=== PATIENT | female | born 1995 | race Caucasian/White ===

== ENCOUNTER 2016-10-10 23:18 | Emergency (ER) | payer BC ==
--- NOTE | 2016-10-10 23:27 | EDM.PDOC ---
ED HPI GENERAL MEDICAL PROBLEM - General Chief Complaint: Abdominal Pain Stated Complaint: PT HAS STOMACH PAINS Time Seen by Provider: 10/10/16 23:27 Source of Information: Reports: Patient - History of Present Illness INITIAL COMMENTS - FREE TEXT/NARRATIVE: HISTORY AND PHYSICAL: History of present illness: []20-year-old at 5-1/7 weeks by very uncertain dates, she can pinpoint her LMP to the month of August she is uncertain if it is beginning [place] and she thinks it may be the middle of August If September 04 were in fact her LMP should be 5-1/7 weeks EDC would be June 11, 2017 She denies any low back pain vaginal bleeding spotting fluid leak with leakage she has had some scant white discharge over the last couple of days, she found out she was 2 days prior after [facility] here in [facility] on a urine hCG Tonight she complains of 7 out of 10 right upper quadrant right lower quadrant and left lower quadrant pain for 20 minutes this began 20-40 minutes after eating pizza Previous history of biliary colic 2 years prior Review of systems: As per history of present illness and below otherwise all systems reviewed and negative. Past medical history: As per history of present illness and as reviewed below otherwise noncontributory. Surgical history: As per history of present illness and as reviewed below otherwise noncontributory. Social history: No reported history of drug or alcohol abuse. Family history: As per history of present illness and as reviewed below otherwise noncontributory. Physical exam: HEENT: Atraumatic, normocephalic, pupils reactive, negative for conjunctival pallor or scleral icterus, mucous membranes moist, throat clear, neck supple, nontender, trachea midline. Lungs: Clear to auscultation, breath sounds equal bilaterally, chest nontender. Heart: S1S2, regular, negative for clicks, rubs, or JVD. Abdomen: Soft, nondistended, nontender. Negative for masses or hepatosplenomegaly. Negative for costovertebral tenderness. Pelvis: Stable nontender. Genitourinary: Deferred. Rectal: Deferred. Extremities: Atraumatic, negative for cords or calf pain. Neurovascular unremarkable. Neuro: Awake, alert, oriented. Cranial nerves II through XII unremarkable. Cerebellum unremarkable. Motor and sensory unremarkable throughout. Exam nonfocal. Diagnostics: []CBC CMP UA urine culture hCG Therapeutics: []1 L normal saline bolus Zofran 8 mg IV Morphine 2 mg IV [place] Zofran Avoid greasy food Amoxicillin 500 by mouth twice a day #20 no refill Impression: []Abdominal pain resolved Likely biliary colic even history IUP ABO type A positive 20-year-old 5-1/7 weeks by uncertain dates 5-5/7 weeks by ultrasound EDC June 11, 2017 by uncertain dates Trace leukocyte esterase and blood in urine Definitive disposition and diagnosis as appropriate pending reevaluation and review of above. Left Abdomen Pain Score (Numeric/FACES): 7 - Related Data Allergies Allergy/AdvReac Type Severity Reaction Status Date / Time No Known Allergies Allergy Verified 03/10/14 12:07 Home Meds: Home Meds . [No Known Home Meds] 10/10/16 [History] ED ROS GENERAL - Review of Systems Review Of Systems: ROS reveals no pertinent complaints other than HPI. ED EXAM, GENERAL - Physical Exam Exam: See Below Course - Vital Signs Last Recorded V/S: Last Vital Signs Temp 36.2 C 10/10/16 23:22 Pulse 92 10/10/16 23:22 Resp 16 10/10/16 23:22 BP 143/97 H 10/10/16 23:22 Pulse Ox 98 10/10/16 23:22 - Orders/Labs/Meds Orders: Active Orders 24 hr Category Date Time Status Abdomen Ltd [US] Stat Exams 10/10/16 23:36 Taken OB Transvaginal [US] Stat Exams 10/11/16 23:36 Taken CULTURE URINE [RM] Stat Lab 10/11/16 00:00 Received Labs: Laboratory Tests 10/10/16 10/10/16 10/10/16 Range/Units 23:40 23:40 23:40 WBC 12.21 H (4.0-11.0) K/uL RBC 4.90 (4.30-5.90) M/uL Hgb 14.8 (12.0-16.0) g/dL Hct 42.6 (36.0-46.0) % MCV 86.9 (80.0-98.0) fL MCH 30.2 (27.0-32.0) pg MCHC 34.7 (31.0-37.0) g/dL RDW Std Deviation 41.5 (28.0-62.0) fl RDW Coeff of Jeanette 13 (11.0-15.0) % Plt Count 239 (150-400) K/uL MPV 11.60 (7.40-12.00) fL Neut % (Auto) 64.7 (48.0-80.0) % Lymph % (Auto) 25.6 (16.0-40.0) % [place] % (Auto) 8.6 (0.0-15.0) % Eos % (Auto) 1.0 (0.0-7.0) % Baso % (Auto) 0.1 (0.0-1.5) % Neut # (Auto) 7.9 H (1.4-5.7) K/uL Lymph # (Auto) 3.1 H (0.6-2.4) K/uL [place] # (Auto) 1.1 H (0.0-0.8) K/uL Eos # (Auto) 0.1 (0.0-0.7) K/uL Baso # (Auto) 0.0 (0.0-0.1) K/uL Nucleated RBC % 0.0 /100WBC Nucleated RBCs # 0 K/uL Sodium 139 (136-146) mmol/L Potassium 3.7 (3.5-5.1) mmol/L Chloride 106 (98-110) mmol/L Carbon Dioxide 26 (21-31) mmol/L BUN 9 (6.0-23.0) mg/dL Creatinine 0.8 (0.6-1.5) mg/dL Est Cr Clr Drug Dosing TNP Estimated GFR (MDRD) > 60.0 ml/min Glucose 98 (60-110) mg/dL Calcium 10.1 (8.8-10.8) mg/dL Total Bilirubin 0.6 (0.1-1.5) mg/dL AST 17 (5-40) IU/L ALT 13 (8-54) IU/L Alkaline Phosphatase 41 (40-150) Total Protein 7.7 (6.0-8.0) g/dL Albumin 4.6 (3.5-5.0) g/dL Globulin 3.1 (2.0-3.5) g/dL Albumin/Globulin Ratio 1.5 (1.3-2.8) Amylase 49 (10-90) U/L Lipase 13 (7-80) U/L HCG, Quant 88544.2 mIU/mL Urine Color Urine Appearance Urine pH (5.0-8.0) Ur Specific [place] (1.001-1.035) Urine Protein (NEGATIVE) mg/dL Urine Glucose (UA) (NEGATIVE) mg/dL Urine Ketones (NEGATIVE) mg/dL Urine Occult Blood (NEGATIVE) Urine Nitrite (NEGATIVE) Urine Bilirubin (NEGATIVE) Urine Ictotest Urine Urobilinogen (<2.0) EU/dL Ur Leukocyte Esterase (NEGATIVE) Urine RBC (0-2/HPF) Urine WBC (0-5/HPF) Ur Epithelial Cells (NONE-FEW) Urine Bacteria (NEGATIVE) Urine Mucus (NONE-MOD) Blood Type A POSITIVE 10/11/16 Range/Units 00:00 WBC (4.0-11.0) K/uL RBC (4.30-5.90) M/uL Hgb (12.0-16.0) g/dL Hct (36.0-46.0) % MCV (80.0-98.0) fL MCH (27.0-32.0) pg MCHC (31.0-37.0) g/dL RDW Std Deviation (28.0-62.0) fl RDW Coeff of Jeanette (11.0-15.0) % Plt Count (150-400) K/uL MPV (7.40-12.00) fL Neut % (Auto) (48.0-80.0) % Lymph % (Auto) (16.0-40.0) % [place] % (Auto) (0.0-15.0) % Eos % (Auto) (0.0-7.0) % Baso % (Auto) (0.0-1.5) % Neut # (Auto) (1.4-5.7) K/uL Lymph # (Auto) (0.6-2.4) K/uL [place] # (Auto) (0.0-0.8) K/uL Eos # (Auto) (0.0-0.7) K/uL Baso # (Auto) (0.0-0.1) K/uL Nucleated RBC % /100WBC Nucleated RBCs # K/uL Sodium (136-146) mmol/L Potassium (3.5-5.1) mmol/L Chloride (98-110) mmol/L Carbon Dioxide (21-31) mmol/L BUN (6.0-23.0) mg/dL Creatinine (0.6-1.5) mg/dL Est Cr Clr Drug Dosing Estimated GFR (MDRD) ml/min Glucose (60-110) mg/dL Calcium (8.8-10.8) mg/dL Total Bilirubin (0.1-1.5) mg/dL AST (5-40) IU/L ALT (8-54) IU/L Alkaline Phosphatase (40-150) Total Protein (6.0-8.0) g/dL Albumin (3.5-5.0) g/dL Globulin (2.0-3.5) g/dL Albumin/Globulin Ratio (1.3-2.8) Amylase (10-90) U/L Lipase (7-80) U/L HCG, Quant mIU/mL Urine Color YELLOW Urine Appearance SLT CLOUDY Urine pH 6.0 (5.0-8.0) Ur Specific [place] >= 1.030 (1.001-1.035) Urine Protein NEGATIVE (NEGATIVE) mg/dL Urine Glucose (UA) NEGATIVE (NEGATIVE) mg/dL Urine Ketones NEGATIVE (NEGATIVE) mg/dL Urine Occult Blood SMALL H (NEGATIVE) Urine Nitrite NEGATIVE (NEGATIVE) Urine Bilirubin SMALL H (NEGATIVE) Urine Ictotest NEGATIVE Urine Urobilinogen 0.2 (<2.0) EU/dL Ur Leukocyte Esterase TRACE (NEGATIVE) Urine RBC 0-2 (0-2/HPF) Urine WBC 2-6 (0-5/HPF) Ur Epithelial Cells MANY (NONE-FEW) Urine Bacteria 1+ H (NEGATIVE) Urine Mucus MODERATE (NONE-MOD) Blood Type Meds: Medications Discontinued Medications Generic Name Dose Route Start Last Admin Trade Name Freq PRN Reason Stop Dose Admin Sodium Chloride 1,000 mls @ 999 mls/hr 10/10/16 23:47 10/11/16 00:03 Normal Saline IV 10/11/16 00:47 999 mls/hr STAT ONE Administration Morphine Sulfate 2 mg 10/10/16 23:47 10/11/16 00:04 Morphine IVPUSH 10/10/16 23:48 2 mg ONETIME ONE Administration Ondansetron HCl 8 mg 10/10/16 23:43 10/11/16 00:04 Antonio IVPUSH 10/10/16 23:44 8 mg ONETIME ONE Administration Departure - Departure Time of Disposition: 01:02 Disposition: Home, Self-Care 01 Condition: Good Clinical Impression: Abdominal pain - Discharge Information Forms: ED Department Discharge Additional Instructions: Medication as prescribed Return if symptoms persist or worsen Follow-up with primary care in 2 weeks Schedule OB appointment vitamins recommended [facility] [address] [place] [id number] [facility] [address] [place] [id number] The following information is given to patients seen in the emergency department who are being discharged to home. This information is to outline your options for follow-up care. We provide all patients seen in our emergency department with a follow-up referral. The need for follow-up, as well as the timing and circumstances, are variable depending upon the specifics of your emergency department visit. If you don't have a primary care physician on staff, we will provide you with a referral. We always advise you to contact your personal physician following an emergency department visit to inform them of the circumstance of the visit and for follow-up with them and/or the need for any referrals to a consulting specialist. The emergency department will also refer you to a specialist when appropriate. This referral assures that you have the opportunity for follow-up care with a specialist. All of these measure are taken in an effort to provide you with optimal care, which includes your follow-up. Under all circumstances we always encourage you to contact your private physician who remains a resource for coordinating your care. When calling for follow-up care, please make the office aware that this follow-up is from your recent emergency room visit. If for any reason you are refused follow-up, please contact the [facility] emergency department at and asked to speak to the emergency department charge nurse. - My Orders Last 24 Hours: My Active Orders 10/10/16 23:36 Abdomen Ltd [US] Stat 10/11/16 00:00 CULTURE URINE [RM] Stat 10/11/16 23:36 OB Transvaginal [US] Stat - Assessment/Plan Last 24 Hours: My Active Orders 10/10/16 23:36 Abdomen Ltd [US] Stat 10/11/16 00:00 CULTURE URINE [RM] Stat 10/11/16 23:36 OB Transvaginal [US] Stat
[2016-10-10] MEDS ORDERED: Ondansetron 4 MG/2 ML SDV IVPUSH ONE (23:43)
[2016-10-10] MEDS ORDERED: Morphine 2 MG/ML Syringe IVPUSH ONE (23:47)
[2016-10-10] MEDS ORDERED: Sodium Chloride 0.9% 1,000 ML IV ONE (23:47)
[2016-10-11 00:17] LABS: CHLORIDE,CL 106 mmol/L (98-110); SODIUM,NA 139 mmol/L (136-146)
[2016-10-11 01:39] VITALS: BP 111/76
--- NOTE | 2016-10-13 11:57 | US ---
EXAM DATE: 10/10/16 PATIENT'S AGE: 20 Patient: NURIA ROWLEY Facility: [place], [place] Site . Site : 1995 Study: US Abdomen [id number] 12:44:17 AM Ordering Physician: Asmita Ramírez Final Report: HISTORY: Pain after eating. FINDINGS: Multiple grayscale static images from a right upper quadrant ultrasound evaluated. The pancreas is normal. The gallbladder is free of intraluminal echogenic foci, wall thickening or pericholecystic fluid. The common bile duct is 1.5 mm. Patient has a negative sonographic Lazo`s sign. Right kidney measures 10.7 cm and is free of hydronephrosis or mass. There is no fluid in Castro`s pouch. The liver parenchyma is homogeneous. IMPRESSION: Normal right upper quadrant ultrasound. No evidence of cholelithiasis, cholecystitis or biliary obstruction. Dictated by Narcisa Murillo MD @ 10/11/2016 12:51:34 AM Dictated by: Narcisa Murillo MD @ 10/11/2016 00:55:24 (Electronic Signature) Report Signed by Proxy. MCKENZIE
--- NOTE | 2016-10-13 12:00 | US ---
EXAM DATE: 10/10/16 PATIENT'S AGE: 20 Patient: NURIA ROWLEY Facility: [place], [place] Site . Site : 1995 Study: US OB Pelvis [id number] 12:44:53 AM Ordering Physician: Asmita Ramírez Final Report: HISTORY: Pain, positive HCG. FINDINGS: Multiple grayscale static images from a transvaginal OB ultrasound were evaluated. An intrauterine gestational sac is present with a mean sac diameter of 1.0 cm consistent with 5 weeks 5 days. The estimated date of delivery is 08 June 2017. The gestational sac contains a 2 mm yolk sac. No pole is identified. No cardiac activity. Maternal right ovary measures 2.5 x 2.2 x 2.9 cm and is normal appearance with normal blood flow. The left ovary measures 1.6 x 1.5 x 1.4 cm. It has normal appearance with normal blood flow. There is trace fluid in the cul-de-sac. IMPRESSION: 1. Intrauterine gestational sac which contains a yolk sac consistent of 5 weeks 5 days. No pole is identified most likely represents a very early . Follow up examination is recommended to document the Maria A of a normal pole. 2. Normal appearance of the ovaries. 3. Trace free fluid in the cul-de-sac. Dictated by Narcisa Murillo MD @ 10/11/2016 12:55:09 AM Dictated by: Narcisa Murillo MD @ 10/11/2016 00:55:18 (Electronic Signature) Report Signed by Proxy. MCKENZIE
== END 2016-10-11 01:20 | disposition home or self-care (01) ==
LOC: MW.ED 23:18
DX: O99.89 Other specified diseases and conditions complicating pregnancy, childbirth and the puerperium (principal); R10.11 Right upper quadrant pain; R10.31 Right lower quadrant pain; R10.32 Left lower quadrant pain; Z3A.01 Less than 8 weeks gestation of pregnancy
CPT/HCPCS: 36415; 76705; 76817; 80053; 81001; 82150; 83690; 84702; 85025; 86900; 86901; 87086; 96361; 96374; 96375; 99284; J2270; J2405; J7040

== ENCOUNTER 2016-12-06 19:58 | Emergency (ER) | payer BC ==
--- NOTE | 2016-12-06 20:42 | EDM.PDOC ---
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 She states that she is 13 weeks and is under the care of Dr. Juárez. LMP is August 30, 2016. Lower abdominal and low back cramping began earlier this morning and has gradually been worsening throughout the day. She denies any vaginal bleeding and spotting. She's had several episodes of nausea and loose stools which have not increased throughout the day. She denies burning with urination but is experiencing urinary frequency. No blood in her stools or urine. She's taken some Tylenol which has not helped with her cramping, has been using a heating pad and warm shower on her back. This is her first . She denies fever and chills. No sore throat, earaches, or runny nose. No recent illness or infection. Denies chest pain shortness of breath and difficulty breathing. No vomiting or constipation. Is otherwise feeling well. Review of systems: As per history of present illness and below otherwise all systems reviewed and negative. Past medical history: As per history of present illness and as reviewed below otherwise noncontributory. Surgical history: As per history of present illness and as reviewed below otherwise noncontributory. Social history: No reported history of drug or alcohol abuse. Family history: As per history of present illness and as reviewed below otherwise noncontributory. Physical exam: HEENT: Atraumatic, normocephalic. TMs are pearly and without effusion. Nares are patent no discharge. Oral mucous membranes are pink and moist. Neck supple no lymphadenopathy. Lungs: Clear to auscultation, breath sounds equal bilaterally. Heart: S1S2, regular rate and rhythm. No murmur. Abdomen: Bowel sounds are normoactive throughout. Abdomen is soft and nondistended. Mildly tender over her lower abdomen. Uterus is palpable just above symphysis pubis. Negative for costovertebral tenderness. Pelvis: Stable nontender. Genitourinary: Deferred. Rectal: Deferred. Extremities: Atraumatic, no cyanosis or edema to feet or lower legs. Neurovascular unremarkable. Neuro: Awake, alert, oriented. Motor and sensory unremarkable throughout. Exam nonfocal. Diagnostics: [CBC, urinalysis, urine culture, OB ultrasound, quantitative hCG] Impression: [Single intrauterine Abdominal discomfort] Plan: [Discussed with patient that her ultrasound shows a normal IUP. CBC and UA WNL. Cause of abdominal discomfort certainly could be due to a viral illness. recommend continued monitoring for now. Strict return precautions are reviewed with the patient. Follow-up with OB on Thursday. Return to ER as needed as discussed.] Definitive disposition and diagnosis as appropriate pending reevaluation and review of above. abdomen Pain Score (Numeric/FACES): 9 - Related Data Allergies Allergy/AdvReac Type Severity Reaction Status Date / Time No Known Allergies Allergy Verified 12/06/16 20:07 Home Meds: Home Meds #103/Iron Fumarate/Fa [ ] 12/06/16 [History] Past Medical History - Past Health History Medical/Surgical History: Denies Medical/Surgical History Social & Family History - Family History Family Medical History: Noncontributory Cardiac: Reports: [place] Endocrine/Metabolic: Reports: Diabetes, Type I - Tobacco Use Smoking Status *Q: Current Every Day Smoker Years of Tobacco use: 6 Packs/Tins Daily: 1 - Caffeine Use Caffeine Use: Reports: Soda - Recreational Drug Use Recreational Drug Use: No ED ROS GENERAL - Review of Systems Review Of Systems: ROS reveals no pertinent complaints other than HPI. ED EXAM - Physical Exam Exam: See Below Course - Vital Signs Last Recorded V/S: Last Vital Signs Temp 97.1 F 12/06/16 20:00 Pulse 82 12/06/16 20:00 Resp 18 12/06/16 20:00 BP 128/84 12/06/16 20:00 Pulse Ox 96 12/06/16 20:00 - Orders/Labs/Meds Orders: Active Orders 24 hr Category Date Time Status OB Ltd 1 or More Fetus [US] Stat Exams 12/06/16 20:23 Taken ABO/RH TYPE [BBK] Stat Lab 12/06/16 20:29 Stop Req CULTURE URINE [RM] Stat Lab 12/06/16 21:25 Received Labs: Laboratory Tests 12/06/16 12/06/16 12/06/16 Range/Units 20:29 20:29 21:25 WBC 11.43 H (4.0-11.0) K/uL RBC 4.75 (4.30-5.90) M/uL Hgb 14.5 (12.0-16.0) g/dL Hct 40.5 (36.0-46.0) % MCV 85.3 (80.0-98.0) fL MCH 30.5 (27.0-32.0) pg MCHC 35.8 (31.0-37.0) g/dL RDW Std Deviation 39.8 (28.0-62.0) fl RDW Coeff of Jeanette 13 (11.0-15.0) % Plt Count 215 (150-400) K/uL MPV 11.60 (7.40-12.00) fL Neut % (Auto) 69.4 (48.0-80.0) % Lymph % (Auto) 23.8 (16.0-40.0) % [place] % (Auto) 5.9 (0.0-15.0) % Eos % (Auto) 0.7 (0.0-7.0) % Baso % (Auto) 0.2 (0.0-1.5) % Neut # (Auto) 7.9 H (1.4-5.7) K/uL Lymph # (Auto) 2.7 H (0.6-2.4) K/uL [place] # (Auto) 0.7 (0.0-0.8) K/uL Eos # (Auto) 0.1 (0.0-0.7) K/uL Baso # (Auto) 0.0 (0.0-0.1) K/uL Nucleated RBC % 0.0 /100WBC Nucleated RBCs # 0 K/uL HCG, Quant 08006.3 mIU/mL Urine Color YELLOW Urine Appearance CLEAR Urine pH 6.0 (5.0-8.0) Ur Specific [place] 1.015 (1.001-1.035) Urine Protein NEGATIVE (NEGATIVE) mg/dL Urine Glucose (UA) NEGATIVE (NEGATIVE) mg/dL Urine Ketones NEGATIVE (NEGATIVE) mg/dL Urine Occult Blood NEGATIVE (NEGATIVE) Urine Nitrite NEGATIVE (NEGATIVE) Urine Bilirubin NEGATIVE (NEGATIVE) Urine Urobilinogen 0.2 (<2.0) EU/dL Ur Leukocyte Esterase TRACE (NEGATIVE) Urine RBC 2-3 (0-2/HPF) Urine WBC 0-2 (0-5/HPF) Ur Epithelial Cells MODERATE (NONE-FEW) Urine Bacteria FEW (NEGATIVE) Urine Mucus FEW (NONE-MOD) Departure - Departure Time of Disposition: 22:00 Disposition: Home, Self-Care 01 Condition: Good Clinical Impression: Intrauterine , Abdominal discomfort - Discharge Information Referrals: PCP,None [Primary Care Provider] - Forms: ED Department Discharge Additional Instructions: The following information is given to patients seen in the emergency department who are being discharged to home. This information is to outline your options for follow-up care. We provide all patients seen in our emergency department with a follow-up referral. The need for follow-up, as well as the timing and circumstances, are variable depending upon the specifics of your emergency department visit. If you don't have a primary care physician on staff, we will provide you with a referral. We always advise you to contact your personal physician following an emergency department visit to inform them of the circumstance of the visit and for follow-up with them and/or the need for any referrals to a consulting specialist. The emergency department will also refer you to a specialist when appropriate. This referral assures that you have the opportunity for follow-up care with a specialist. All of these measure are taken in an effort to provide you with optimal care, which includes your follow-up. Under all circumstances we always encourage you to contact your private physician who remains a resource for coordinating your care. When calling for follow-up care, please make the office aware that this follow-up is from your recent emergency room visit. If for any reason you are refused follow-up, please contact the [facility] emergency department at and asked to speak to the emergency department charge nurse. [facility] - [facility] [address] [place] [id number] Follow-up with your OB early next week. Continue to monitor as we discussed. Return to ER as needed as discussed. - My Orders Last 24 Hours: My Active Orders 12/06/16 20:23 OB Ltd 1 or More Fetus [US] Stat 12/06/16 20:29 ABO/RH TYPE [BBK] Stat 12/06/16 21:25 CULTURE URINE [RM] Stat - Assessment/Plan Last 24 Hours: My Active Orders 12/06/16 20:23 OB Ltd 1 or More Fetus [US] Stat 12/06/16 20:29 ABO/RH TYPE [BBK] Stat 12/06/16 21:25 CULTURE URINE [RM] Stat
[2016-12-06 22:30] VITALS: BP 110/56
--- NOTE | 2016-12-08 15:34 | US ---
EXAM DATE: 12/06/16 PATIENT'S AGE: 20 Patient: NURIA ROWLEY Facility: [place], [place] Site . Site : 1995 Study: US OB Pelvis [id number] 9:20:21 PM Ordering Physician: Doctor Liz Final Report: Indication: Abdominal pain and . Comparison: 11 October 2016. Findings: Reach presentation of single intrauterine . heart rate is 149. Normal maternal ovaries. Anterior placenta. Contour deformity through the posterior uterus during the exam comment 3 with a contraction. No biometry performed. Impression: Single active intrauterine . No abruption. Uterine contraction witnessed. Dictated by Jose Key MD @ Dec 06 2016 9:27PM (Electronic Signature) Report Signed by Proxy. MCKENZIE
== END 2016-12-06 22:15 | disposition home or self-care (01) ==
LOC: MW.ED 19:58
DX: O99.89 Other specified diseases and conditions complicating pregnancy, childbirth and the puerperium (principal); R10.30 Lower abdominal pain, unspecified; O99.331 Smoking (tobacco) complicating pregnancy, first trimester; F17.210 Nicotine dependence, cigarettes, uncomplicated; Z3A.13 13 weeks gestation of pregnancy
CPT/HCPCS: 36415; 76815; 76815-26; 81001; 84702; 85025; 87086; 99283; 99284-25

== ENCOUNTER 2017-05-24 17:40 | Inpatient (IN) | payer BC, OTHER ==
[2017-05-24] MEDS ORDERED: Morphine 4 MG/ML Syringe IM ONE (18:25)
[2017-05-24] MEDS ORDERED: Sodium Chloride 0.9% 2.5 ML Syringe FLUSH PRN (22:13)
[2017-05-24] MEDS ORDERED: Water For Irrigation,Sterile 1,000 ML Container IRR PRN (22:13)
[2017-05-24] MEDS ORDERED: Misoprostol 200 MCG Tab PO PRN (22:13)
[2017-05-24] MEDS ORDERED: Carboprost Tromethamine 250 MCG/1 ML Amp IM PRN (22:13)
[2017-05-24] MEDS ORDERED: Butorphanol 1 MG/ML SDV IVPUSH PRN (22:13)
[2017-05-24] MEDS ORDERED: Nalbuphine 10 MG/1 ML Vial IVPUSH PRN (22:13)
[2017-05-24] MEDS ORDERED: Methylergonovine 0.2 MG/1 ML Amp IM PRN (22:13)
[2017-05-24] MEDS ORDERED: Tranexamic Acid 1,000 MG in Sodium Chloride 0.9% 100 ML IV PRN (22:13)
[2017-05-24] MEDS ORDERED: Lidocaine 1% 50 ML MDV INJECT PRN (22:13)
[2017-05-24] MEDS ORDERED: Sodium Chloride 0.9% 10 ML Syringe FLUSH PRN (22:13)
[2017-05-24] MEDS ORDERED: Oxytocin/0.9 % Sodium Chloride 30 UNIT/500 ML BAG IV SCH (22:15)
[2017-05-24] MEDS: Lactated Ringers 1,000 ML IV SCH ×2 (22:35→23:37)
--- NOTE | 2017-05-24 23:48 | PCM.PREANE ---
Preanesthetic Assessment - Anesthesia/Transfusion/Family Hx Anesthesia History: No Prior Anesthesia - Review of Systems General: No Symptoms Pulmonary: No Symptoms Cardiovascular: No Symptoms Gastrointestinal: No Symptoms Neurological: No Symptoms Other: Reports: None - Physical Assessment Height: 5 ft Weight: 74.843 kg ASA Class: 2 Mental Status: Alert & Oriented x3 Airway Class: Mallampati = 2 Dentition: Reports: Normal Dentition Thyro-Mental Finger Breadths: 3 Mouth Opening Finger Breadths: 3 ROM/Head Extension: Full Lungs: Clear to Auscultation, Normal Respiratory Effort Cardiovascular: Regular Rate, Regular Rhythm - Lab Values: Laboratory Last Values WBC 18.39 K/uL (4.0-11.0) H 05/24/17 22:30 RBC 4.21 M/uL (4.30-5.90) L 05/24/17 22:30 Hgb 11.3 g/dL (12.0-16.0) L 05/24/17 22:30 Hct 34.6 % (36.0-46.0) L 05/24/17 22:30 MCV 82.2 fL (80.0-98.0) 05/24/17 22:30 MCH 26.8 pg (27.0-32.0) L 05/24/17 22:30 MCHC 32.7 g/dL (31.0-37.0) 05/24/17 22:30 RDW Std Deviation 42.0 fl (28.0-62.0) 05/24/17 22:30 RDW Coeff of Jeanette 14 % (11.0-15.0) 05/24/17 22:30 Plt Count 190 K/uL (150-400) 05/24/17 22:30 MPV 12.90 fL (7.40-12.00) H 05/24/17 22:30 Nucleated RBC % 0.0 /100WBC 05/24/17 22:30 Nucleated RBCs # 0 K/uL 05/24/17 22:30 Membrane Rupture POSITIVE 05/24/17 21:10 Blood Type A POSITIVE 05/24/17 22:30 - Allergies Allergies/Adverse Reactions: Allergies Allergy/AdvReac Type Severity Reaction Status Date / Time No Known Allergies Allergy Verified 12/06/16 20:07 - Acknowledgements Anesthesia Type Planned: Epidural Pt an Appropriate Candidate for the Planned Anesthesia: Yes Alternatives and Risks of Anesthesia Discussed w Pt/Guardian: Yes Pt/Guardian Understands and Agrees with Anesthesia Plan: Yes PreAnesthesia Questionnaire - Past Health History Medical/Surgical History: Denies Medical/Surgical History HEENT History: Reports: None Cardiovascular History: Reports: None Respiratory History: Reports: None Gastrointestinal History: Reports: GERD Genitourinary History: Reports: None [employer] History: Reports: : 1 Para: 0 LMP (Approximate): Musculoskeletal History: Reports: None Neurological History: Reports: Migraines Psychiatric History: Reports: Anxiety Endocrine/Metabolic History: Reports: Obesity/BMI 30+ Hematologic History: Reports: Anemia Immunologic History: Reports: None Oncologic (Cancer) History: Reports: None Dermatologic History: Reports: None - Infectious Disease History Infectious Disease History: Reports: None - SUBSTANCE USE Smoking Status *Q: Current Every Day Smoker Tobacco Use Within Last Twelve Months: Cigarettes Recreational Drug Use History: No - HOME MEDS Home Medications: Home Meds #103/Iron Fumarate/Fa [ ] 12/06/16 [History] - CURRENT (IN HOUSE) MEDS Current Meds: Current Medications Butorphanol Tartrate (Stadol) 1 mg IVPUSH ASDIRECTED PRN PRN Reason: Pain Carboprost Tromethamine (Hemabate Ds) 250 mcg IM ASDIRECTED PRN PRN Reason: Post Hemorrhage Tranexamic Acid 1,000 mg/ (Sodium Chloride) 110 mls @ 660 mls/hr IV ONETIME PRN PRN Reason: Bleeding Lactated Ringer's (Ringers, Lactated) 1,000 mls @ 150 mls/hr IV ASDIRECTED [facility] Last Admin: 05/24/17 23:37 Dose: 500 mls/hr Oxytocin/Sodium Chloride (Oxytocin 30 Unit/500 Ml-Ns) 30 unit in 500 mls @ 999 mls/hr IV TITRATE [facility] Lidocaine HCl (Xylocaine 1%) 50 ml INJECT .ONCE PRN PRN Reason: Laceration repair Methylergonovine Maleate (Methergine) 0.2 mg IM ASDIRECTED PRN PRN Reason: Post Hemorrhage Misoprostol (Cytotec) 200 mcg PO .ONCE PRN PRN Reason: Post Hemorrhage Nalbuphine HCl (Nubain) 10 mg IVPUSH ASDIRECTED PRN PRN Reason: Pain (moderate 4-6) Stop: 05/26/17 22:16 Sodium Chloride (Saline Flush) 10 ml FLUSH ASDIRECTED PRN PRN Reason: Keep Vein Open Sodium Chloride (Saline Flush) 2.5 ml FLUSH ASDIRECTED PRN PRN Reason: Keep Vein Open Sterile Water (Sterile Water For Irrigation) 1,000 ml IRR ASDIRECTED PRN PRN Reason: delivery Discontinued Medications Morphine Sulfate (Morphine) 4 mg IM ONETIME ONE Stop: 05/24/17 18:26 Last Admin: 05/24/17 18:38 Dose: 4 mg
[2017-05-25] MEDS: Lactated Ringers 1,000 ML IV SCH (00:21)
[2017-05-25] MEDS ORDERED: oxyCODONE 5 MG Tab PO PRN (05:03)
[2017-05-25] MEDS ORDERED: Lanolin 100% Cream 7 GM Tube TOP PRN (05:03)
[2017-05-25] MEDS ORDERED: Docusate Sodium 100 MG Cap PO PRN (05:03)
[2017-05-25] MEDS ORDERED: Bisacodyl 10 MG Supp RECTAL PRN (05:03)
[2017-05-25] MEDS ORDERED: Witch Hazel Medicated Pads 40/Jar TOP PRN (05:03)
[2017-05-25] MEDS ORDERED: Benzocaine/Menthol 20%-0.5% Spray 78 GM Cannister TOP PRN (05:03)
[2017-05-25] MEDS ORDERED: Acetaminophen 500 MG Tab PO PRN ×2 (05:03)
[2017-05-25] MEDS ORDERED: Ibuprofen 400 MG Tab PO PRN (05:03)
--- NOTE | 2017-05-25 06:28 | OR ---
SURGEON: ESTRELLITA MEDINA DATE OF PROCEDURE: 05/25/2017 PREOPERATIVE DIAGNOSIS: A 21-year-old 1, para 0 at 37 weeks 3 days, POSTOPERATIVE DIAGNOSES: 1. Status post normal spontaneous vaginal delivery. 2. Intact perineum. ANESTHESIA: Epidural. PROCEDURE PERFORMED: Normal spontaneous vaginal delivery. ESTIMATED BLOOD LOSS: 200 mL. FINDINGS: A live female delivered at 4:09 a.m. scores were 8 and 9. Weight is 3110 g. Three-vessel cord noted. Perineum intact. BRIEF HISTORY: She is a 21-year-old , who presented at 37 weeks 2 days with contractions. She was monitored and then had SROM in the triage. The patient was subsequently admitted. On admission, she was 3/80/ -2, she made change to 4cm dilation in about 10 hours. When she was in full dilation, she was encouraged to push. DESCRIPTION OF PROCEDURE: With the patient being fully dilated and she was encouraged to push. With good patient's effort, the patient delivered the head subsequently by the anterior and posterior shoulders and then the 's body. The infant was placed on the maternal abdomen. Delayed cord clamping was observed. Then, the cord was clamped and cut, Cord blood gases was obtained. Pitocin was started after delivery of the anterior shoulder . Separation of the placenta was noted with gushing of blood. The placenta was delivered via controlled cord traction. Hemostasis was noted after the procedure. Perineum was intact. The infant and mother were left in stable condition. BLAISE HUERTA /[id number] MTDD
[2017-05-25] MEDS: Ibuprofen 800 MG Tab PO PRN (13:22)
--- NOTE | 2017-05-25 15:31 | PCM48HPAN ---
Post Anesthesia Note - EVALUATION WITHIN 48HRS OF ANESTHETIC Vital Signs in Normal Range: Yes Patient Participated in Evaluation: Yes Respiratory Function Stable: Yes Airway Patent: Yes Cardiovascular Function Stable: Yes Hydration Status Stable: Yes Pain Control Satisfactory: Yes Nausea and Vomiting Control Satisfactory: Yes Mental Status Recovered: Yes Resp Rate: 17
[2017-05-26] MEDS: Ibuprofen 800 MG Tab PO PRN (08:09)
--- NOTE | 2017-05-26 08:24 | PCM.PNPP ---
<Leona Montana - Last Filed: 05/26/17 08:19> - General Info Date of Service: 05/26/17 Functional Status: Reports: Pain Controlled, Tolerating Diet, Ambulating, Urinating - Review of Systems General: Denies: Fever, Weakness, Fatigue Pulmonary: Denies: Shortness of Breath, Pleuritic Chest Pain, Cough Cardiovascular: Reports: Edema. Denies: Chest Pain, Palpitations, Dyspnea on Exertion, Lightheadedness Gastrointestinal: Denies: Abdominal Pain Genitourinary: Denies: Dysuria Neurological: Reports: Other (headache) - General Info Date of Service: 05/26/17 - Patient Data Vital Signs - Most Recent: Last Vital Signs Temp 36.3 C 05/26/17 04:00 Pulse 77 05/26/17 04:00 Resp 16 05/26/17 04:00 BP 118/72 05/26/17 04:00 Pulse Ox 96 05/26/17 04:00 Weight - Most Recent: 165 lb Lab Results - Last 24 Hours: Laboratory Results - last 24 hr 05/26/17 Range/Units 05:47 Hgb 9.6 L (12.0-16.0) g/dL Hct 33.8 L (36.0-46.0) % Med Orders - Current: Current Medications Acetaminophen (Tylenol Extra Strength) 500 mg PO Q4H PRN PRN Reason: Pain Acetaminophen (Tylenol Extra Strength) 1,000 mg PO Q4H PRN PRN Reason: Pain Last Admin: 05/26/17 04:01 Dose: 1,000 mg Benzocaine/Menthol (Dermoplast Pain Relief 20%-0.5% [place]) 78 gm TOP ASDIRECTED PRN PRN Reason: Perineal Comfort Measure Bisacodyl (Dulcolax) 10 mg RECTAL .ONCE PRN PRN Reason: Constipation Carboprost Tromethamine (Hemabate Ds) 250 mcg IM ASDIRECTED PRN PRN Reason: Post Hemorrhage Docusate Sodium (Colace) 100 mg PO BID PRN PRN Reason: Constipation Emollient Ointment (Lansinoh Hpa) 0 gm TOP ASDIRECTED PRN PRN Reason: Sore Nipples Tranexamic Acid 1,000 mg/ (Sodium Chloride) 110 mls @ 660 mls/hr IV ONETIME PRN PRN Reason: Bleeding Lactated Ringer's (Ringers, Lactated) 1,000 mls @ 150 mls/hr IV ASDIRECTED [facility] Last Admin: 05/25/17 00:21 Dose: 150 mls/hr Oxytocin/Sodium Chloride (Oxytocin 30 Unit/500 Ml-Ns) 30 unit in 500 mls @ 999 mls/hr IV TITRATE [facility] Last Admin: 05/25/17 04:09 Dose: 999 mls/hr Ibuprofen (Motrin) 400 mg PO Q4H PRN PRN Reason: Pain Ibuprofen (Motrin) 800 mg PO Q6H PRN PRN Reason: Pain Last Admin: 05/26/17 08:09 Dose: 800 mg Methylergonovine Maleate (Methergine) 0.2 mg IM ASDIRECTED PRN PRN Reason: Post Hemorrhage Misoprostol (Cytotec) 200 mcg PO .ONCE PRN PRN Reason: Post Hemorrhage Oxycodone HCl (Oxycodone) 5 mg PO Q2H PRN PRN Reason: Pain Sodium Chloride (Saline Flush) 10 ml FLUSH ASDIRECTED PRN PRN Reason: Keep Vein Open Sodium Chloride (Saline Flush) 2.5 ml FLUSH ASDIRECTED PRN PRN Reason: Keep Vein Open Sterile Water (Sterile Water For Irrigation) 1,000 ml IRR ASDIRECTED PRN PRN Reason: delivery Last Admin: 05/25/17 04:00 Dose: 1,000 ml Witch Mireya (Tucks) 1 pad TOP ASDIRECTED PRN PRN Reason: comfort care Discontinued Medications Butorphanol Tartrate (Stadol) 1 mg IVPUSH ASDIRECTED PRN PRN Reason: Pain Fentanyl/Bupivacaine HCl (Gchcmols-Edlnd-Uf 2 Mcg/Ml-0.125%) Confirm Administered Dose 100 mls @ as directed EP .STK-MED ONE Stop: 05/24/17 23:56 Lidocaine HCl (Xylocaine 1%) 50 ml INJECT .ONCE PRN PRN Reason: Laceration repair Morphine Sulfate (Morphine) 4 mg IM ONETIME ONE Stop: 05/24/17 18:26 Last Admin: 05/24/17 18:38 Dose: 4 mg Nalbuphine HCl (Nubain) 10 mg IVPUSH ASDIRECTED PRN PRN Reason: Pain (moderate 4-6) Stop: 05/26/17 22:16 - Interaction Disposition, : in Room with Family Interaction: Holding Infant Infant Feeding: Attempted ; Nursed Fair/Poor Support Person: Significant Other, Friend - Recovery Exam Fundal Tone: Firm Fundal Level: 1 Fingerbreadths Below Umbilicus Fundal Placement: Midline Lochia Amount: Small Lochia Color: Rubra/Red Perineum Description: Intact, Minimal Bruising/Swelling Episiotomy/Laceration: None Bladder Status: Voiding Urinary Elimination: Voided - Exam General: Alert, Oriented Neck: Supple Lungs: Clear to Auscultation, Normal Respiratory Effort Cardiovascular: Regular Rate, Regular Rhythm GI/Abdominal Exam: Normal Bowel Sounds, No Distention Skin: Warm, Dry, Intact Psy/Mental Status: Alert, Normal Affect, Normal Mood - Problem List & Annotations (1) Vaginal delivery SNOMED Code(s): 379044640 Code(s): O80 - ENCOUNTER FOR FULL-TERM UNCOMPLICATED DELIVERY Status: Acute Current Visit: Yes - Problem List Review Problem List Initiated/Reviewed/Updated: Yes - Assessment Assessment:: PPD #1 from . Breast feeding. Complains of migraine-type headache behind left eye. Blood pressures have been WNL. Fiorcet was ordered and will evaluate with CBC and CMP. If WNL, than discharge home today. - Plan Plan:: Discharge instructions given. Pelvic rest for 6 weeks. Continue PNV while breast feeding. Can use OTC ibuprofen/tylenol as needed for pain. Instructed patient to call if she develops fever greater than 101 or bleeding through a large pad an hour. F/U with [facility] in 6 weeks. <Deepa Juárez - Last Filed: 05/26/17 10:14> - Patient Data Vital Signs - Most Recent: Last Vital Signs Temp 36.8 C 05/26/17 08:33 Pulse 75 05/26/17 08:33 Resp 16 05/26/17 08:33 BP 123/83 05/26/17 08:33 Pulse Ox 96 05/26/17 08:33 Lab Results - Last 24 Hours: Laboratory Results - last 24 hr 05/26/17 Range/Units 05:47 Hgb 9.6 L (12.0-16.0) g/dL Hct 33.8 L (36.0-46.0) % Med Orders - Current: Current Medications Acetaminophen (Tylenol Extra Strength) 500 mg PO Q4H PRN PRN Reason: Pain Acetaminophen (Tylenol Extra Strength) 1,000 mg PO Q4H PRN PRN Reason: Pain Last Admin: 05/26/17 04:01 Dose: 1,000 mg Benzocaine/Menthol (Dermoplast Pain Relief 20%-0.5% [place]) 78 gm TOP ASDIRECTED PRN PRN Reason: Perineal Comfort Measure Bisacodyl (Dulcolax) 10 mg RECTAL .ONCE PRN PRN Reason: Constipation Carboprost Tromethamine (Hemabate Ds) 250 mcg IM ASDIRECTED PRN PRN Reason: Post Hemorrhage Docusate Sodium (Colace) 100 mg PO BID PRN PRN Reason: Constipation Emollient Ointment (Lansinoh Hpa) 0 gm TOP ASDIRECTED PRN PRN Reason: Sore Nipples Tranexamic Acid 1,000 mg/ (Sodium Chloride) 110 mls @ 660 mls/hr IV ONETIME PRN PRN Reason: Bleeding Lactated Ringer's (Ringers, Lactated) 1,000 mls @ 150 mls/hr IV ASDIRECTED [facility] Last Admin: 05/25/17 00:21 Dose: 150 mls/hr Oxytocin/Sodium Chloride (Oxytocin 30 Unit/500 Ml-Ns) 30 unit in 500 mls @ 999 mls/hr IV TITRATE [facility] Last Admin: 05/25/17 04:09 Dose: 999 mls/hr Ibuprofen (Motrin) 400 mg PO Q4H PRN PRN Reason: Pain Ibuprofen (Motrin) 800 mg PO Q6H PRN PRN Reason: Pain Last Admin: 05/26/17 08:09 Dose: 800 mg Methylergonovine Maleate (Methergine) 0.2 mg IM ASDIRECTED PRN PRN Reason: Post Hemorrhage Misoprostol (Cytotec) 200 mcg PO .ONCE PRN PRN Reason: Post Hemorrhage Oxycodone HCl (Oxycodone) 5 mg PO Q2H PRN PRN Reason: Pain Sodium Chloride (Saline Flush) 10 ml FLUSH ASDIRECTED PRN PRN Reason: Keep Vein Open Sodium Chloride (Saline Flush) 2.5 ml FLUSH ASDIRECTED PRN PRN Reason: Keep Vein Open Sterile Water (Sterile Water For Irrigation) 1,000 ml IRR ASDIRECTED PRN PRN Reason: delivery Last Admin: 05/25/17 04:00 Dose: 1,000 ml Witch Mireya (Tucks) 1 pad TOP ASDIRECTED PRN PRN Reason: comfort care Discontinued Medications Acetaminophen/Butalbital/Caffeine (Fioricet 325-50-40 Mg) 1 tab PO ONETIME ONE Stop: 05/26/17 08:28 Last Admin: 05/26/17 09:05 Dose: 1 tab Butorphanol Tartrate (Stadol) 1 mg IVPUSH ASDIRECTED PRN PRN Reason: Pain Fentanyl/Bupivacaine HCl (Ebxofhtx-Hxsvs-Re 2 Mcg/Ml-0.125%) Confirm Administered Dose 100 mls @ as directed EP .STK-MED ONE Stop: 05/24/17 23:56 Lidocaine HCl (Xylocaine 1%) 50 ml INJECT .ONCE PRN PRN Reason: Laceration repair Morphine Sulfate (Morphine) 4 mg IM ONETIME ONE Stop: 05/24/17 18:26 Last Admin: 05/24/17 18:38 Dose: 4 mg Nalbuphine HCl (Nubain) 10 mg IVPUSH ASDIRECTED PRN PRN Reason: Pain (moderate 4-6) Stop: 05/26/17 22:16 - Assessment Assessment:: Agree with above assessment. Her labs are normal, symptoms consistent with a migraine - Plan Plan:: Patient may be discharged home later today
[2017-05-26] MEDS ORDERED: Acetaminophen/Butalbital/Caffeine 325-50-40 MG Tab PO ONE (08:27)
[2017-05-26 08:37] VITALS: BP 123/83
[2017-05-26 09:56] LABS: CHLORIDE,CL 108 mmol/L (98-107); SODIUM,NA 140 mmol/L (136-145)
== END 2017-05-26 12:35 | disposition home or self-care (01) | DRG 560 ==
LOC: MW.OBCHECK 17:40 → MW.OB 17:41 → MW.OBCHECK 17:46 → MW.OB 22:22 → OBSVTOIN 05-25 04:09 → MW.OB 05-25 07:46
PROVIDERS: ADMIT Obstetrics & Gynecology; ATTEND Obstetrics & Gynecology
PROC: 10E0XZZ Delivery of Products of Conception, External Approach (ICD-10-PCS; principal; 2017-05-25)
DX: O42.02 Full-term premature rupture of membranes, onset of labor within 24 hours of rupture (principal); Z3A.37 37 weeks gestation of pregnancy; Z37.0 Single live birth
CPT/HCPCS: 36415; 51702; 59025; 59409; 80053; 82803; 84112; 85014; 85018; 85027; 86850; 86900; 86901; A9270-GY; J2270; J2590; J7120

== ENCOUNTER 2018-11-16 20:35 | Emergency (ER) | payer BC ==
[2018-11-16] MEDS ORDERED: Sodium Chloride 0.9% 1,000 ML IV ONE (20:41)
--- NOTE | 2018-11-16 20:54 | EDM.PDOC ---
ED HPI GENERAL MEDICAL PROBLEM - General Chief Complaint: Abdominal Pain Stated Complaint: PT HAS STOMACH PAINS Time Seen by Provider: 11/16/18 20:40 Source of Information: Reports: Patient History Limitations: Reports: No Limitations - History of Present Illness INITIAL COMMENTS - FREE TEXT/NARRATIVE: HISTORY AND PHYSICAL: History of present illness: Patient is a 22-year-old female who presents to the emergency room with complaints of low abdominal pain and nausea 3 days. She states that the pain has progressively gotten worse, more bothersome in the last one hour. Last menstrual period was 2 weeks ago, although states that there is a chance of . Had a uneventful vaginal delivery 18 months ago, continues to be breast-feeding. Patient denies any fever, chills, headache, change in vision, syncope or near syncope. Denies any chest pain, back pain, shortness of breath or cough. Denies any vaginal bleeding, vomiting, diarrhea, constipation or dysuria. Has not noted any blood in urine or stool. Denies any concerns of STDs. Patient has been eating and drinking appropriately. Review of systems: As per history of present illness and below otherwise all systems reviewed and negative. Past medical history: As per history of present illness and as reviewed below otherwise noncontributory. Surgical history: As per history of present illness and as reviewed below otherwise noncontributory. Social history: See social history for further information Family history: As per history of present illness and as reviewed below otherwise noncontributory. Physical exam: General: Well-developed and well-nourished 22-year-old female. Alert and oriented. Nontoxic appearing and in no acute distress. HEENT: Atraumatic, normocephalic, pupils equal and reactive bilaterally, negative for conjunctival pallor or scleral icterus, mucous membranes moist, TMs normal bilaterally, throat clear, neck supple, nontender, trachea midline. No drooling or trismus noted. No meningeal signs. No hot potato voice noted. Lungs: Clear to auscultation, breath sounds equal bilaterally, chest nontender. Heart: S1S2, regular rate and rhythm without overt murmur Abdomen: Soft, nondistended, vague tenderness in all 4 quadrants. Negative for masses or hepatosplenomegaly. Negative for costovertebral tenderness. Pelvis: Stable nontender. Skin: Intact, warm, dry. No lesions or rashes noted. Extremities: Atraumatic, moves all extremities per self without difficulty or deficits, negative for cords or calf pain. Neurovascular unremarkable. Neuro: Awake, alert, oriented. Cranial nerves II through XII unremarkable. Cerebellum unremarkable. Motor and sensory unremarkable throughout. Exam nonfocal. Notes: Patient declines IV or IV medication. Declines pelvic exam or STD screening. Lab work is unremarkable. Encouraged her to follow-up with primary care and/or [facility] MIN[facility] BLASTING for further evaluation and management. Supportive care measures were reviewed and discussed. Voices understanding and is agreeable to plan of care. Denies any further questions or concerns at this time. Diagnostics: CBC, CMP, UA, HCGU, CT abd/pelvis Therapeutics: IV fluids, Toradol, Zofran Prescription: None Impression: Abdominal pain Plan: 1. Labs were normal today. Please use Tylenol and/or Ibuprofen as needed for pain and fever management. 2. Get plenty of Rest. Encourage fluids to prevent dehydration. 3. Please follow up with your primary care provider. Return to the ED as needed as discussed. Definitive disposition and diagnosis as appropriate pending reevaluation and review of above. low abd Pain Score (Numeric/FACES): 7 - Related Data Allergies Allergy/AdvReac Type Severity Reaction Status Date / Time No Known Allergies Allergy Verified 12/06/16 20:07 Home Meds: Home Meds . 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: Musculoskeletal History: Reports: None Neurological History: Reports: Migraines Psychiatric History: Reports: Anxiety Endocrine/Metabolic History: Reports: Obesity/BMI 30+ Hematologic History: Reports: Anemia Immunologic History: Reports: None Oncologic (Cancer) History: Reports: None Dermatologic History: Reports: None - Infectious Disease History Infectious Disease History: Reports: None - Past Surgical History GI Surgical History: Reports: None Social & Family History - Family History Family Medical History: Noncontributory Cardiac: Reports: [place] Endocrine/Metabolic: Reports: Diabetes, Type I - Tobacco Use Smoking Status *Q: Current Every Day Smoker Years of Tobacco use: 6 Packs/Tins Daily: 0.5 - Caffeine Use Caffeine Use: Reports: Soda - Recreational Drug Use Recreational Drug Use: No ED ROS GENERAL - Review of Systems Review Of Systems: ROS reveals no pertinent complaints other than HPI. ED EXAM, GI/ABD - Physical Exam Exam: See Below (See dictation) Course - Vital Signs Last Recorded V/S: Last Vital Signs Temp 96.9 F 11/16/18 20:43 Pulse 69 11/16/18 20:43 Resp 16 11/16/18 20:43 BP 126/76 11/16/18 20:43 Pulse Ox 95 11/16/18 20:43 - Orders/Labs/Meds Labs: Laboratory Tests 11/16/18 11/16/18 11/16/18 Range/Units 20:50 20:50 21:05 WBC 8.85 (4.0-11.0) K/uL RBC 4.98 (4.30-5.90) M/uL Hgb 14.8 (12.0-16.0) g/dL Hct 43.0 (36.0-46.0) % MCV 86.3 (80.0-98.0) fL MCH 29.7 (27.0-32.0) pg MCHC 34.4 (31.0-37.0) g/dL RDW Std Deviation 41.0 (28.0-62.0) fl RDW Coeff of Jeanette 13 (11.0-15.0) % Plt Count 203 (150-400) K/uL MPV 11.60 (7.40-12.00) fL Neut % (Auto) 57.8 (48.0-80.0) % Lymph % (Auto) 32.8 (16.0-40.0) % [place] % (Auto) 7.2 (0.0-15.0) % Eos % (Auto) 2.0 (0.0-7.0) % Baso % (Auto) 0.2 (0.0-1.5) % Neut # (Auto) 5.1 (1.4-5.7) K/uL Lymph # (Auto) 2.9 H (0.6-2.4) K/uL [place] # (Auto) 0.6 (0.0-0.8) K/uL Eos # (Auto) 0.2 (0.0-0.7) K/uL Baso # (Auto) 0.0 (0.0-0.1) K/uL Nucleated RBC % 0.0 /100WBC Nucleated RBCs # 0 K/uL Sodium (136-145) mmol/L Potassium (3.5-5.1) mmol/L Chloride (98-107) mmol/L Carbon Dioxide (21.0-32.0) mmol/L BUN (7.0-18.0) mg/dL Creatinine (0.6-1.0) mg/dL Est Cr Clr Drug Dosing mL/min Estimated GFR (MDRD) ml/min Glucose (74-106) mg/dL Calcium (8.5-10.1) mg/dL Total Bilirubin (0.2-1.0) mg/dL AST (15-37) IU/L ALT (14-63) IU/L Alkaline Phosphatase (46-116) U/L Total Protein (6.4-8.2) g/dL Albumin (3.4-5.0) g/dL Globulin (2.6-4.0) g/dL Albumin/Globulin Ratio (0.9-1.6) Lipase (73-393) U/L Urine Color YELLOW Urine Appearance CLEAR Urine pH 6.0 (5.0-8.0) Ur Specific Malone 1.015 (1.001-1.035) Urine Protein NEGATIVE (NEGATIVE) mg/dL Urine Glucose (UA) NEGATIVE (NEGATIVE) mg/dL Urine Ketones NEGATIVE (NEGATIVE) mg/dL Urine Occult Blood NEGATIVE (NEGATIVE) Urine Nitrite NEGATIVE (NEGATIVE) Urine Bilirubin NEGATIVE (NEGATIVE) Urine Urobilinogen 0.2 (<2.0) EU/dL Ur Leukocyte Esterase NEGATIVE (NEGATIVE) Urine HCG, Qual NEGATIVE (NEGATIVE) 11/16/18 Range/Units 21:05 WBC (4.0-11.0) K/uL RBC (4.30-5.90) M/uL Hgb (12.0-16.0) g/dL Hct (36.0-46.0) % MCV (80.0-98.0) fL MCH (27.0-32.0) pg MCHC (31.0-37.0) g/dL RDW Std Deviation (28.0-62.0) fl RDW Coeff of Jeanette (11.0-15.0) % Plt Count (150-400) K/uL MPV (7.40-12.00) fL Neut % (Auto) (48.0-80.0) % Lymph % (Auto) (16.0-40.0) % [place] % (Auto) (0.0-15.0) % Eos % (Auto) (0.0-7.0) % Baso % (Auto) (0.0-1.5) % Neut # (Auto) (1.4-5.7) K/uL Lymph # (Auto) (0.6-2.4) K/uL [place] # (Auto) (0.0-0.8) K/uL Eos # (Auto) (0.0-0.7) K/uL Baso # (Auto) (0.0-0.1) K/uL Nucleated RBC % /100WBC Nucleated RBCs # K/uL Sodium 138 (136-145) mmol/L Potassium 4.3 (3.5-5.1) mmol/L Chloride 105 (98-107) mmol/L Carbon Dioxide 24.4 (21.0-32.0) mmol/L BUN 12 (7.0-18.0) mg/dL Creatinine 0.7 (0.6-1.0) mg/dL Est Cr Clr Drug Dosing 89.78 mL/min Estimated GFR (MDRD) > 60.0 ml/min Glucose 96 (74-106) mg/dL Calcium 9.4 (8.5-10.1) mg/dL Total Bilirubin 0.3 (0.2-1.0) mg/dL AST 9 L (15-37) IU/L ALT 13 L (14-63) IU/L Alkaline Phosphatase 44 L (46-116) U/L Total Protein 6.8 (6.4-8.2) g/dL Albumin 3.9 (3.4-5.0) g/dL Globulin 2.9 (2.6-4.0) g/dL Albumin/Globulin Ratio 1.3 (0.9-1.6) Lipase 136 (73-393) U/L Urine Color Urine Appearance Urine pH (5.0-8.0) Ur Specific Malone (1.001-1.035) Urine Protein (NEGATIVE) mg/dL Urine Glucose (UA) (NEGATIVE) mg/dL Urine Ketones (NEGATIVE) mg/dL Urine Occult Blood (NEGATIVE) Urine Nitrite (NEGATIVE) Urine Bilirubin (NEGATIVE) Urine Urobilinogen (<2.0) EU/dL Ur Leukocyte Esterase (NEGATIVE) Urine HCG, Qual (NEGATIVE) Meds: Medications Discontinued Medications Generic Name Dose Route Start Last Admin Trade Name Chavez PRN Reason Stop Dose Admin Sodium Chloride 1,000 mls @ 999 mls/hr 11/16/18 20:41 11/16/18 21:03 Normal Saline IV 11/16/18 21:41 Not Given STAT ONE Departure - Departure Time of Disposition: 21:45 Disposition: Home, Self-Care 01 Clinical Impression: Abdominal pain Qualifiers: Abdominal location: lower abdomen, unspecified Qualified Code(s): R10.30 - Lower abdominal pain, unspecified - Discharge Information Instructions: Abdominal Pain, Adult, [id number] Referrals: PCP,None [Primary Care Provider] - Forms: ED Department Discharge Additional Instructions: The following information is given to patients seen in the emergency department who are being discharged to home. This information is to outline your options for follow-up care. We provide all patients seen in our emergency department with a follow-up referral. The need for follow-up, as well as the timing and circumstances, are variable depending upon the specifics of your emergency department visit. If you don't have a primary care physician on staff, we will provide you with a referral. We always advise you to contact your personal physician following an emergency department visit to inform them of the circumstance of the visit and for follow-up with them and/or the need for any referrals to a consulting specialist. The emergency department will also refer you to a specialist when appropriate. This referral assures that you have the opportunity for follow-up care with a specialist. All of these measure are taken in an effort to provide you with optimal care, which includes your follow-up. Under all circumstances we always encourage you to contact your private physician who remains a resource for coordinating your care. When calling for follow-up care, please make the office aware that this follow-up is from your recent emergency room visit. If for any reason you are refused follow-up, please contact the [facility] Emergency Department at and asked to speak to the emergency department charge nurse. [facility] [address] [place] [address] [facility] [address] [place] [address] 1. Labs were normal today. Please use Tylenol and/or Ibuprofen as needed for pain and fever management. 2. Get plenty of Rest. Encourage fluids to prevent dehydration. 3. Please follow up with your primary care provider. Return to the ED as needed as discussed.
[2018-11-16 21:32] LABS: CHLORIDE,CL 105 mmol/L (98-107); SODIUM,NA 138 mmol/L (136-145)
[2018-11-16 21:59] VITALS: BP 95/71
== END 2018-11-16 21:55 | disposition home or self-care (01) ==
LOC: MW.ED 20:35
DX: R10.30 Lower abdominal pain, unspecified (principal); F17.210 Nicotine dependence, cigarettes, uncomplicated
CPT/HCPCS: 36415; 80053; 81003; 81025; 83690; 85025; 99284

== ENCOUNTER 2018-11-21 07:57 | Emergency (ER) | payer BC ==
--- NOTE | 2018-11-21 08:14 | EDM.PDOC ---
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 Stated Complaint: STOMACH AND CHEST PAIN Time Seen by Provider: 11/21/18 08:09 - History of Present Illness INITIAL COMMENTS - FREE TEXT/NARRATIVE: HISTORY AND PHYSICAL: History of present illness: Patient's 22-year-old female who was recently diagnosed with ovarian cyst was been followed by MACHINE BURRER who presents today with an episode of chest pain she states this morning she noticed some brief chest pain she equivocates regarding shortness of breath there's been no diaphoresis palpitations nausea vomiting daily described the nonlocalized Review of systems: As per history of present illness and below otherwise all systems reviewed and negative. Past medical history: As per history of present illness and as reviewed below otherwise noncontributory. Surgical history: As per history of present illness and as reviewed below otherwise noncontributory. Social history: No reported history of drug or alcohol abuse. Family history: As per history of present illness and as reviewed below otherwise noncontributory. Physical exam: HEENT: Atraumatic, normocephalic, pupils reactive, negative for conjunctival pallor or scleral icterus, mucous membranes moist, throat clear, neck supple, nontender, trachea midline. Lungs: Clear to auscultation, breath sounds equal bilaterally, chest nontender. Heart: S1S2, regular, negative for clicks, rubs, or JVD. Abdomen: Soft, nondistended, nontender. Negative for masses or hepatosplenomegaly. Negative for costovertebral tenderness. Pelvis: Stable nontender. Genitourinary: Deferred. Rectal: Deferred. Extremities: Atraumatic, negative for cords or calf pain. Neurovascular unremarkable. Neuro: Awake, alert, oriented. Cranial nerves II through XII unremarkable. Cerebellum unremarkable. Motor and sensory unremarkable throughout. Exam nonfocal. Diagnostics: Chest x-ray EKG pulse oximetry Therapeutics: None Impression: #1 atypical chest pain #2 history ovarian cyst Definitive disposition and diagnosis as appropriate pending reevaluation and review of above. - Related Data Allergies Allergy/AdvReac Type Severity Reaction Status Date / Time No Known Allergies Allergy Verified 12/06/16 20:07 Home Meds: Home Meds . 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: Musculoskeletal History: Reports: None Neurological History: Reports: Migraines Psychiatric History: Reports: Anxiety Endocrine/Metabolic History: Reports: Obesity/BMI 30+ Hematologic History: Reports: Anemia Immunologic History: Reports: None Oncologic (Cancer) History: Reports: None Dermatologic History: Reports: None - Infectious Disease History Infectious Disease History: Reports: None - Past Surgical History GI Surgical History: Reports: None Social & Family History - Family History Family Medical History: Noncontributory Cardiac: Reports: [place] Endocrine/Metabolic: Reports: Diabetes, Type I - Caffeine Use Caffeine Use: Reports: Soda ED ROS GENERAL - Review of Systems Review Of Systems: ROS reveals no pertinent complaints other than HPI. ED EXAM, GENERAL - Physical Exam Exam: See Below (See dictation) Departure - Departure Time of Disposition: 08:12 Disposition: Home, Self-Care 01 Condition: Good Clinical Impression: Atypical chest pain - Discharge Information Referrals: PCP,Unknown [Primary Care Provider] - Additional Instructions: The following information is given to patients seen in the emergency department who are being discharged to home. This information is to outline your options for follow-up care. We provide all patients seen in our emergency department with a follow-up referral. The need for follow-up, as well as the timing and circumstances, are variable depending upon the specifics of your emergency department visit. If you don't have a primary care physician on staff, we will provide you with a referral. We always advise you to contact your personal physician following an emergency department visit to inform them of the circumstance of the visit and for follow-up with them and/or the need for any referrals to a consulting specialist. The emergency department will also refer you to a specialist when appropriate. This referral assures that you have the opportunity for followup care with a specialist. All of these measure are taken in an effort to provide you with optimal care, which includes your followup. Under all circumstances we always encourage you to contact your private physician who remains a resource for coordinating your care. When calling for followup care, please make the office aware that this follow-up is from your recent emergency room visit. If for any reason you are refused follow-up, please contact the [facility] emergency department at and asked to speak to the emergency department charge nurse. Motrin/Tylenol as directed follow-up primary care and MACHINE BURRER as discussed return as needed as discussed
--- NOTE | 2018-11-21 08:42 | CR ---
INDICATION: Chest pain. TECHNIQUE: AP chest. FINDINGS: Clear lungs. Normal heart size and pulmonary vascularity. Normal included skeletal thorax. IMPRESSION: Negative AP chest. Dictated by Mani Olvera MD @ Nov 21 2018 8:41AM Signed by Dr. Mani Olvera @ Nov 21 2018 8:41AM
[2018-11-21 09:33] VITALS: BP 109/62
== END 2018-11-21 09:28 | disposition home or self-care (01) ==
LOC: MW.ED 07:57
DX: R07.89 Other chest pain (principal); E66.9 Obesity, unspecified; Z68.23 Body mass index [BMI] 23.0-23.9, adult; Z86.2 Personal history of diseases of the blood and blood-forming organs and certain disorders involving the immune mechanism
CPT/HCPCS: 71045; 71045-26; 93005; 99284; 99285-25

== ENCOUNTER 2019-11-03 16:30 | Observation (INO) | payer BC, OTHER | END 2019-11-03 18:30 | disposition home or self-care (01) | LOC: MW.OB 16:30 | PROVIDERS: ADMIT Obstetrics & Gynecology; ATTEND Obstetrics & Gynecology | DX: O99.89 Other specified diseases and conditions complicating pregnancy, childbirth and the puerperium (principal); M54.5 Low back pain; O42.90 Premature rupture of membranes, unspecified as to length of time between rupture and onset of labor, unspecified weeks of gestation; Z3A.00 Weeks of gestation of pregnancy not specified | CPT/HCPCS: 59025; 84112 ==

== ENCOUNTER 2019-12-09 14:02 | Emergency (ER) | payer BC, OTHER | END 2019-12-09 14:19 | disposition left against medical advice (07) | LOC: MW.ED 14:02 | DX: Z53.21 Procedure and treatment not carried out due to patient leaving prior to being seen by health care provider (principal) ==

== ENCOUNTER 2022-11-05 19:40 | Emergency (ER) | payer BC, OTHER ==
[2022-11-05] MEDS ORDERED: Ketorolac 30 MG/ML SDV IVPUSH ONE (20:33)
[2022-11-05] MEDS ORDERED: Sodium Chloride 0.9% 1,000 ML IV ONE (20:33)
[2022-11-05] MEDS ORDERED: Ondansetron 4 MG/2 ML SDV IVPUSH ONE (20:33)
[2022-11-05 20:54] LABS: BASOPHILS PERCENT AUTO 0.3 % (0.0-1.5); EOSINOPHILS ABSOLUTE AUTO 0.1 K/uL (0.0-0.7); EOSINOPHILS PERCENT AUTO 1.8 % (0.0-7.0); HEMOGLOBIN 14.9 g/dL (12.0-16.0); LYMPHOCYTES ABSOLUTE AUTO 2.1 K/uL (0.6-2.4); LYMPHOCYTES PERCENT AUTO 33.9 % (16.0-40.0); MEAN CORPUSCULAR HEMOGLOBIN 29.7 pg (27.0-32.0); MEAN CORPUSCULAR HGB CONC 34.7 g/dL (31.0-37.0); MEAN CORPUSCULAR VOLUME 85.7 fL (80.0-98.0); MONOCYTES ABSOLUTE AUTO 0.4 K/uL (0.0-0.8); MONOCYTES PERCENT AUTO 7.2 % (0.0-15.0); NEUTROPHILS ABSOLUTE AUTO 3.4 K/uL (1.4-5.7); NEUTROPHILS PERCENT AUTO 56.8 % (48.0-80.0); NRBC ABSOLUTE 0 K/uL; PLATELET COUNT,PLT 215 K/uL (150-400); RED BLOOD CELL COUNT 5.02 M/uL (4.30-5.90); WHITE BLOOD CELL COUNT,WBC 6.07 K/uL (4.0-11.0)
[2022-11-05 21:09] LABS: D-DIMER QUANTITATIVE 0.22 mg/L FEU (0.00-0.50); INR 1.07 (0.86-1.11); PTT,PARTIAL THROMBOPLSTIN TIME 30.5 SEC (23.9-30.7)
[2022-11-05 21:27] LABS: A/G RATIO 1.2 (0.9-1.6); ALANINE AMINOTRANSFERASE,ALT 22 IU/L (14-63); ALBUMIN 4.1 g/dL (3.4-5.0); ALKALINE PHOSPHATASE 49 U/L (46-116); ASPARTATE AMNIOTRANSFERASE,AST 16 IU/L (15-37); BILIRUBIN TOTAL 0.3 mg/dL (0.2-1.0); BLOOD UREA NITROGEN,BUN 12 mg/dL (7.0-18.0); CARBON DIOXIDE,CO2 28.6 mmol/L (21.0-32.0); CHLORIDE,CL 105 mmol/L (98-107); CREATININE 0.8 mg/dL (0.6-1.0); EST CRCL DRUG DOSING (CG) 75.87 mL/min; ESTIMATED GFR 104 mL/min (>60); GLUCOSE RANDOM 97 mg/dL (74-106); LIPASE 31 U/L (16-77); POTASSIUM,K 3.6 mmol/L (3.5-5.1); PROTEIN TOTAL,TP 7.5 g/dL (6.4-8.2); SODIUM,NA 142 mmol/L (136-145)
[2022-11-05 21:43] VITALS: BP 108/73; PULSE 79
== END 2022-11-05 21:43 | disposition home or self-care (01) ==
LOC: MW.ED 19:40
DX: R07.89 Other chest pain (principal); R53.83 Other fatigue; F17.210 Nicotine dependence, cigarettes, uncomplicated; E66.9 Obesity, unspecified; Z68.25 Body mass index [BMI] 25.0-25.9, adult; Z20.822 Contact with and (suspected) exposure to COVID-19
CPT/HCPCS: 36415; 71045; 80053; 83690; 83735; 84484; 84703; 85025; 85379; 85610; 85730; 87635; 93005; 96360; 99285; J7030; 93010; 99284; U0002

== ENCOUNTER 2023-10-27 00:19 | Emergency (ER) | payer BC ==
[2023-10-27] MEDS: Sodium Chloride 0.9% 1,000 ML IV ONE (02:00)
[2023-10-27] MEDS: Metoclopramide 10 MG/2 ML SDV IVPUSH ONE (02:01)
[2023-10-27] MEDS: diphenhydrAMINE 50 MG/ML SDV IVPUSH ONE (02:01)
[2023-10-27] MEDS: Ketorolac 30 MG/ML SDV IVPUSH ONE (02:01)
[2023-10-27] MEDS: Sodium Chloride 0.9% 10 ML Syringe FLUSH PRN (02:02)
[2023-10-27] MEDS: Sodium Chloride 0.9% 2.5 ML Syringe FLUSH PRN (02:02)
[2023-10-27 02:05] LABS: BASOPHILS ABSOLUTE AUTO 0.02 K/uL (0.00-0.20); BASOPHILS PERCENT AUTO 0.3 % (0.0-1.0); EOSINOPHILS PERCENT AUTO 1.6 % (0.0-6.0); HEMATOCRIT 41.2 % (37.0-47.0); HEMOGLOBIN 14.2 g/dL (12.0-16.0); IMMATURE GRAN ABSOLUTE AUTO 0.01 K/uL (0.00-0.05); IMMATURE GRAN PERCENT AUTO 0.2 % (0.0-0.4); LYMPHOCYTES ABSOLUTE AUTO 2.63 K/uL (1.00-4.80); MEAN CORPUSCULAR HEMOGLOBIN 29.2 pg (28.0-32.0); MEAN CORPUSCULAR HGB CONC 34.5 g/dL (32.0-36.0); MEAN CORPUSCULAR VOLUME 84.8 fL (83.0-99.0); MEAN PLATELET VOLUME 12.1 fL (9.4-12.3); MONOCYTES ABSOLUTE AUTO 0.67 K/uL (0.00-0.80); MONOCYTES PERCENT AUTO 10.5 % (0.0-8.0); NEUTROPHILS ABSOLUTE AUTO 2.98 K/uL (1.80-7.70); NEUTROPHILS PERCENT AUTO 46.4 % (41.0-71.0); PLATELET COUNT,PLT 183 K/uL (150-400); RED BLOOD CELL COUNT 4.86 M/uL (4.10-5.30); WHITE BLOOD CELL COUNT,WBC 6.41 K/uL (3.9-11.3)
[2023-10-27 02:20] LABS: A/G RATIO 1.4 (0.9-1.6); ALBUMIN 4.1 g/dL (3.4-5.0); BILIRUBIN TOTAL 0.3 mg/dL (0.2-1.0); CALCIUM 8.8 mg/dL (8.5-10.1); CARBON DIOXIDE,CO2 26.4 mmol/L (21.0-32.0); CREATININE 0.8 mg/dL (0.6-1.0); EST CRCL DRUG DOSING (CG) 75.2 mL/min; MAGNESIUM 1.8 mg/dL (1.8-2.4); POTASSIUM,K 3.8 mmol/L (3.5-5.1)
[2023-10-27] MEDS: diphenhydrAMINE 50 MG/ML SDV IVPUSH STA (02:30)
[2023-10-27 02:55] LABS: APPEARANCE,URINE CLEAR; BILIRUBIN,URINE NEGATIVE (NEGATIVE); COLOR,URINE YELLOW; GLUCOSE,URINE NEGATIVE (NEGATIVE); KETONES,URINE NEGATIVE (NEGATIVE); LEUKOCYTE ESTERASE,URINE NEGATIVE (NEGATIVE); NITRITE,URINE NEGATIVE (NEGATIVE); OCCULT BLOOD,URINE NEGATIVE (NEGATIVE); PROTEIN,URINE NEGATIVE (NEGATIVE); UROBILINOGEN,URINE 0.2 EU/dL (<2.0)
[2023-10-27] MEDS ORDERED: Sodium Chloride 0.9% 1,000 ML IV ONE (03:10)
[2023-10-27 03:54] VITALS: BP 110/72; PULSE 78
== END 2023-10-27 03:57 | disposition home or self-care (01) ==
LOC: MW.ED 00:19
DX: G43.909 Migraine, unspecified, not intractable, without status migrainosus (principal); E66.9 Obesity, unspecified; Z68.26 Body mass index [BMI] 26.0-26.9, adult
CPT/HCPCS: 36415; 70450; 80053; 81003; 83735; 84703; 85025; 96374; 96375; 99284; J1200; J1885; J2765; J3490; J7030

== ENCOUNTER 2024-07-13 11:02 | Emergency (ER) | payer BC ==
[2024-07-13] MEDS: Sodium Chloride 0.9% 1,000 ML IV ONE (11:17)
[2024-07-13] MEDS: Ondansetron 4 MG/2 ML SDV IVPUSH ONE (11:18)
[2024-07-13] MEDS: Ketorolac 30 MG/ML SDV IVPUSH ONE (11:18)
[2024-07-13 11:27] LABS: BASOPHILS ABSOLUTE AUTO 0.03 K/uL (0.00-0.20); BASOPHILS PERCENT AUTO 0.6 % (0.0-1.0); EOSINOPHILS ABSOLUTE AUTO 0.05 K/uL (0.00-0.45); HEMATOCRIT 42.1 % (37.0-47.0); HEMOGLOBIN 14.8 g/dL (12.0-16.0); IMMATURE GRAN ABSOLUTE AUTO 0.01 K/uL (0.00-0.05); IMMATURE GRAN PERCENT AUTO 0.2 % (0.0-0.4); LYMPHOCYTES ABSOLUTE AUTO 1.38 K/uL (1.00-4.80); LYMPHOCYTES PERCENT AUTO 27.9 % (24.0-44.0); MEAN CORPUSCULAR HGB CONC 35.2 g/dL (32.0-36.0); MEAN CORPUSCULAR VOLUME 85.2 fL (83.0-99.0); MEAN PLATELET VOLUME 11.9 fL (9.4-12.3); MONOCYTES ABSOLUTE AUTO 0.38 K/uL (0.00-0.80); MONOCYTES PERCENT AUTO 7.7 % (0.0-8.0); NEUTROPHILS ABSOLUTE AUTO 3.09 K/uL (1.80-7.70); NEUTROPHILS PERCENT AUTO 62.6 % (41.0-71.0); PLATELET COUNT,PLT 179 K/uL (150-400); RED BLOOD CELL COUNT 4.94 M/uL (4.10-5.30); WHITE BLOOD CELL COUNT,WBC 4.94 K/uL (3.9-11.3)
[2024-07-13 11:51] LABS: INR 1.07 (0.86-1.11)
[2024-07-13 12:06] LABS: A/G RATIO 1.4 (0.9-1.6); ALANINE AMINOTRANSFERASE,ALT 28 IU/L (14-63); ALBUMIN 4.2 g/dL (3.4-5.0); ALKALINE PHOSPHATASE 37 U/L (46-116); ASPARTATE AMNIOTRANSFERASE,AST 16 IU/L (15-37); BILIRUBIN TOTAL 0.7 mg/dL (0.2-1.0); BLOOD UREA NITROGEN,BUN 7 mg/dL (7.0-18.0); CALCIUM 9.2 mg/dL (8.5-10.1); CARBON DIOXIDE,CO2 27.7 mmol/L (21.0-32.0); CHLORIDE,CL 107 mmol/L (98-107); CREATININE 0.9 mg/dL (0.6-1.0); EST CRCL DRUG DOSING (CG) 66.25 mL/min; GLUCOSE RANDOM 90 mg/dL (74-106); POTASSIUM,K 3.8 mmol/L (3.5-5.1); PRO B-TYPE NATRIUR PEPT,BNPPRO 46 pg/mL (0-125); PROTEIN TOTAL,TP 7.2 g/dL (6.4-8.2); SODIUM,NA 142 mmol/L (136-145); TSH ULTRASENSITIVE 0.62 uIU/mL (0.36-3.74)
[2024-07-13 12:11] LABS: ESTIMATED GFR 89 mL/min (>60)
[2024-07-13 12:23] VITALS: BP 101/62; PULSE 63
== END 2024-07-13 12:23 | disposition home or self-care (01) ==
LOC: MW.ED 11:02
DX: R07.89 Other chest pain (principal); Z75.8 Other problems related to medical facilities and other health care
CPT/HCPCS: 36415; 71045; 80053; 83735; 83880; 84443; 84484; 84703; 85025; 85610; 93005; 96360; 99285; J7030; 93010; 99284